=== PATIENT | female | born 1990 | race Caucasian/White ===

== ENCOUNTER 2023-10-04 07:34 | Inpatient (IN) ==
[2023-10-04] MEDS ORDERED: OXYTOCIN 30 UNITS/NSS 30 UNITS/500 ML BAG IV PRN ×2 (07:37→17:08)
[2023-10-04] MEDS ORDERED: LIDOCAINE 1% LOCAL 20 ML VIAL INFIL PRN (07:37)
--- NOTE | 2023-10-04 07:46 | History & Physical Report ---
Date of Service October 04, 2023 Assessment & Plan (1) Encounter for induction of labor: Plan 32 y/o female currently at 39WGA with an SHAWNA 10/11/23 as determined by US, who is here for IOL. Pitocin AROM as indicated Epidural prn Monitor heart tracing, category 1 Admission and Anticipated Discharge Date Admission Date: October 04, 2023 History of Present Illness Primary Care Provider: Virginia Curran MD 32 y/o female currently at 39WGA with an SHAWNA 10/11/23 as determined by US, who is here for IOL. complicated by: GDM Obesity (BMI between 35-39 @ beginning of ) Hypothyroid - follows endo Conceived on OCPs Suspected LGA - EFW 97% Had regular appointments with OB (+)Contractions (+) movement Unsure about fluid loss, small amount of leakage but thinks this is most likely urine (-)Vaginal bleeding External FHT and external uterine monitors used: Category 1 tracing OB Labs: Blood Type O Positive 04/06/23 Antibody Screen NEGATIVE 04/06/23 Hemoglobin 11.7 g/dl (12.0-16.0) L 08/05/23 Hematocrit 35.6 % (37.0-47.0) L 08/05/23 Mean Corpuscular Volume 88.7 fL (80.0-100.0) 04/06/23 Platelet Count 170 K/uL (130-400) 04/06/23 Rubella IgG Antibody Immune (Immune) 03/01/23 Rapid Plasma Reagin Nonreactive (Nonreactive) 03/01/23 Hepatitis B Surface Antigen. NON-REACTIVE (NON-REACTIVE) 03/01/23 Hepatitis C Antibody (EIA) NON-REACTIVE (NON-REACTIVE) 03/01/23 HIV (1&2) Ag and Ab Confirmation NON-REACTIVE (NON-REACTIVE) 03/01/23 OB Optional Labs: Chlamydia trachomatis RNA Not Detected (NotDetected) 03/01/23 Neisseria gonorrhoeae RNA Not Detected (NotDetected) 03/01/23 Thyroid Stimulating Hormone (TSH) 1.868 uIu/ml (0.300-4.500) 08/05/23 Labs Reviewed: low riks cfdna - sln neg cf/sma - sln Allergies Allergy/AdvReac Type Severity Reaction Status Date / Time No Known Allergies Allergy Verified 10/03/23 10:10 Home Medications Medication Instructions Recorded Confirmed Type blood-glucose meter (OneTouch #1 ea 03/18/23 10/03/23 Rx Verio Reflect Meter) lancets 33 gauge #150 ea 07/15/23 10/03/23 Rx acetone (urine) test (Ketone Urine #50 ea 08/09/23 10/03/23 Rx Test strips) blood sugar diagnostic (OneTouch #200 ea 09/09/23 10/03/23 Rx Verio test strips) levothyroxine 75 mcg tablet 75 mcg PO DAILYBB #34 tabs 09/09/23 10/04/23 Rx Patient History Medical History ADHD FH: Crohn's disease FH: rheumatoid arthritis Gestational diabetes mellitus (GDM) Surgical History History of oral surgery Tooth extraction S/P dilation and curettage S/P tonsillectomy and adenoidectomy Family History Mother Precancerous changes of the cervix Denies family history of Ovarian cancer Breast cancer Colorectal cancer Uterine cancer Social History (Updated 10/04/23 @ 07:52 by Cristela Cox RN) Smoking Status: Never smoker Second Hand Exposure: No; Do You Dip or Chew Tobacco: No; Hx Alcohol Use: No Hx Substance Use: No Preferred Language: Serbian Communication Ability: Effective 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 Beliefs That Will Affect Care: None marital status: marital status details: Terrence Jain [phone] Current Living Situation: Spouse Current Living Situation Comment: lives with , kid, 1 dog, 1 cat (spouse litter changing) current occupational status: employed 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 Date GA wks Lbr Lgth wt Sex Type del Anes Place Del Prov ? 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 No acute distress Cardiac: Regular rate and rhythm, no murmurs appreciated Respiratory: Lungs clear to auscultation bilaterally, No increased work of breathing Abdominal: Soft, non-tender, non-distended. Bowel sounds present. Gravid uterus. Extremities: No lower extremity edema, calves non-tender bilaterally FHT: Category 1, baseline rate 145, moderate variability Genitourinary: OB Exam Abdomen: + vertex, + estimated weight (8-9 pounds) and + irregular contractions Manual OB Exam: + cervical dilation (2-3 cm), + cervical effacement 60% and + station -2 OB Exam Monitor Tracing: + external FHT monitor used, + external uterine monitor used, + category I and + normal FHT variability Supervising Physician Co-Signing Physician Notes Resident Physician Supervision Note: I interviewed and examined the patient. Discussed with Dr. Santos and agree with findings and plan as documented in the note. Any exceptions or clarifications are listed here: [None] Documented By: Tesha Gardner MD, FACOG Resident Activity Tracking Resident Involvement: Resident Care Provided Care Provided: OB Delivery
[2023-10-04 08:09] LABS: Hematocrit (blood only) 35.3 % (37.0-47.0); Hemoglobin 11.8 g/dl (12.0-16.0); Mean Corpuscular Hemoglobin 27.1 pg (25.0-34.0); Mean Corpuscular Hgb Conc 33.4 g/dL (32.0-36.0); Mean Platelet Volume 12.7 fL (9.4-12.4); Platelet Count 167 K/uL (130-400); RDW Coefficient of Variation 13.2 % (11.5-14.5); RDW Standard Deviation 38.7 fL (36.4-46.3); Red Blood Count 4.36 M/uL (4.20-5.40); White Blood Count 11.13 K/ul (4.8-10.8)
[2023-10-04] MEDS: LACTATED RINGER'S 1,000 ML IV PRN (08:45)
[2023-10-04] MEDS: OXYTOCIN 30 UNITS/NSS 30 UNITS/500 ML BAG IV PRN (09:16)
[2023-10-04] MEDS: BUPIVACAINE 0.25% PF 30 ML VIAL ONE (15:44)
[2023-10-04] MEDS: LIDOCAINE 2%/EPINEPHRINE 1:200,000 20 ML PF ONE (15:44)
[2023-10-04] MEDS: fentANYL 2 MCG/ML BUPIVacaine 0.125%-NSS 100ML BAG ONE (15:45)
[2023-10-04] MEDS: SODIUM CHLORIDE 0.9% PF INJ 10 ML VIAL ONE (15:53)
[2023-10-04] MEDS: fentaNYL citrate PF 100 MCG/2 ML VIAL ONE (15:53)
[2023-10-04] MEDS: ePHEDrine sulfate 50 MG/ML AMP ONE (15:53)
--- NOTE | 2023-10-04 15:53 | Anesthesiology Consultation ---
Date of Service October 04, 2023 Assessment & Plan Chart Review Chart Review: Acceptable Risk for Labor Epidural Consults Requested none History Height/Weight Height: 5 ft 6 in Weight: 115.666 kg Allergies Allergy/AdvReac Type Severity Reaction Status Date / Time No Known Allergies Allergy Verified 10/03/23 10:10 Medications Home Medications Medication Instructions Recorded Confirmed Last Taken blood-glucose meter (OneTouch #1 ea 03/18/23 10/03/23 Unknown Verio Reflect Meter) lancets 33 gauge #150 ea 07/15/23 10/03/23 Unknown acetone (urine) test (Ketone Urine #50 ea 08/09/23 10/03/23 Unknown Test strips) blood sugar diagnostic (OneTouch #200 ea 09/09/23 10/03/23 Unknown Verio test strips) levothyroxine 75 mcg tablet 75 mcg PO DAILYBB #34 tabs 09/09/23 10/04/23 10/04/23 05:30 Active Medications Generic Name Dose Route Start Last Admin Trade Name Freq PRN Reason Stop Dose Admin Oxytocin 30 units in 500 mls @ 12 mls/hr 10/04/23 07:37 10/04/23 13:45 Pitocin 30 Units/Nss IV 10/06/23 07:36 0.72 units/hr .Q24H PRN 12 mls/hr Labor Induction/Augmentation Titration Protocol 0.72 UNITS/HR Lactated Ringer's 1,000 mls @ 125 mls/hr 10/04/23 07:37 10/04/23 15:24 Lr IV 10/06/23 07:36 999 mls/hr .Q8H PRN Administration L&D Protocol Protocol Past Medical History Medical History ADHD FH: Crohn's disease FH: rheumatoid arthritis Gestational diabetes mellitus (GDM) Past Family History Family History Mother Precancerous changes of the cervix Denies family history of Ovarian cancer Breast cancer Colorectal cancer Uterine cancer Past Surgical History Surgical History History of oral surgery Tooth extraction S/P dilation and curettage S/P tonsillectomy and adenoidectomy Social History Smoking Status: Never smoker Do You Dip or Chew Tobacco: No Hx Alcohol Use: No Hx Substance Use: No Physical Exam Vital Signs Last Vital Signs Temp 36.5 C 10/04/23 14:45 Pulse 83 10/04/23 15:51 Resp 20 10/04/23 14:45 BP 131/74 10/04/23 15:50 Pulse Ox 97 10/04/23 15:51 Testing Laboratory Results 10/04/23 07:47 Blood Type O Positive 10/04/23 07:47 Antibody Screen NEGATIVE 10/04/23 07:47
[2023-10-04] MEDS ORDERED: SODIUM CHLORIDE 0.9% PF INJ 10 ML VIAL EPI PRN (15:55)
[2023-10-04] MEDS ORDERED: ePHEDrine sulfate 50 MG/ML AMP IV PRN (15:55)
[2023-10-04] MEDS ORDERED: ROPIVACAINE 0.5% PF 5 MG/ML 20 ML VIAL EPI PRN (15:55)
[2023-10-04] MEDS ORDERED: diphenhydrAMINE 50 MG/ML VIAL IV PRN (15:55)
[2023-10-04] MEDS ORDERED: BUPIVACAINE 0.25% PF 30 ML VIAL EPI PRN (15:55)
[2023-10-04] MEDS ORDERED: NALOXONE HCL 0.4 MG/1 ML VIAL/CARP IV PRN (15:55)
[2023-10-04] MEDS ORDERED: NALOXONE HCL 1 MG in SODIUM CHLORIDE 0.9% 1,000 ML IV PRN (15:55)
[2023-10-04] MEDS ORDERED: LIDOCAINE 2% MPF LOCAL 5 ML VIAL EPI PRN (15:55)
[2023-10-04] MEDS ORDERED: fentANYL 2 MCG/ML BUPIVacaine 0.125%-NSS 100ML BAG EPI PRN (15:55)
[2023-10-04] MEDS ORDERED: fentaNYL citrate PF 100 MCG/2 ML VIAL EPI PRN (15:55)
[2023-10-04] MEDS ORDERED: NALBUPHINE HCL 5 MG in SYRINGE 0 ML IV PRN (15:55)
--- NOTE | 2023-10-04 16:56 | Delivery Summary ---
Vaginal Delivery Summary Date of Service October 04, 2023 Vaginal Delivery Summary Induction of labor gestational diabetes not on insulin was induced in the morning by Dr. Stoner given Pitocin or water ruptured spontaneously requested epidural soon after epidural she was fully dilated and pushed over a total of 2 contractions in occiput anterior position head was delivered with clear fluid there was a loose nuchal cord that was passed over the baby's head gentle traction on the baby resulted in easy delivery no excessive force live vigorous female cord clamped after pulsations stopped cord blood obtained placenta removed with gentle traction IV Pitocin started uterine tone improved there was no tearing sponge and instrument counts correct [facility] Vaginal Delivery Charge Delivery Type Details:
[2023-10-04] MEDS ORDERED: ACETAMINOPHEN 325 MG TAB PO PRN (17:08)
[2023-10-04] MEDS ORDERED: bisacodyL 10 MG SUPP PR PRN (17:08)
[2023-10-04] MEDS ORDERED: HYDROCORTISONE ACETATE 25 MG SUPP PR PRN (17:08)
[2023-10-04] MEDS: DIPHTHER/TETAN/PERTUS Vaccine (Tdap, Adol/Adult) 0.5mL IM ONE (17:23)
[2023-10-04] MEDS: BUPIVACAINE 0.25% PF 30 ML VIAL EPI STA (17:23)
[2023-10-04] MEDS: fentaNYL citrate PF 100 MCG/2 ML VIAL EPI STA (17:23)
[2023-10-04] MEDS: LIDOCAINE 2%/EPINEPHRINE 1:200,000 20 ML PF EPI STA (17:24)
[2023-10-04] MEDS: SODIUM CHLORIDE 0.9% PF INJ 10 ML VIAL EPI STA (17:24)
--- NOTE | 2023-10-04 19:25 | Anesthesia Procedure Note ---
Date of Service October 04, 2023 Anesthesia Post Epidural Note Vital Signs Vital Signs: Temp Pulse Resp BP Pulse Ox 36.5 C 85 20 129/73 99 10/04/23 14:45 10/04/23 18:44 10/04/23 14:45 10/04/23 18:44 10/04/23 16:46 Pain Intensity Bilateral Abdomen: Pain Intensity: 0 Notes Mental Status: alert / awake / arousable Nausea / Vomiting: adequately controlled Pain: adequately controlled Airway Patency, RR, SpO2: stable & adequate BP & HR: stable & adequate Hydration State: stable & adequate Neuraxial Anesthesia: was administered and sensory block is resolving Anesthetic Complications: no major complications apparent and Pt Satisfied with anesthetic care Epidural: Removed without complications and With tip intact
[2023-10-04] MEDS: IBUPROFEN 600 MG TAB PO PRN (20:16)
[2023-10-04] MEDS: DOCUSATE SODIUM 100 MG CAP PO SCH (20:16)
[2023-10-04] MEDS: BENZOCAINE 20% SPRY 85 APPLN/85 GM CAN EXT PRN (20:16)
[2023-10-05] MEDS: LEVOTHYROXINE SODIUM 75 MCG TABLET PO SCH (06:22)
[2023-10-05 06:46] LABS: Hematocrit (blood only) 30.7 % (37.0-47.0); Mean Corpuscular Hemoglobin 27.1 pg (25.0-34.0); Mean Corpuscular Hgb Conc 32.6 g/dL (32.0-36.0); Mean Corpuscular Volume 83.2 fL (80.0-100.0); Mean Platelet Volume 12.7 fL (9.4-12.4); Platelet Count 155 K/uL (130-400); RDW Coefficient of Variation 13.3 % (11.5-14.5); Red Blood Count 3.69 M/uL (4.20-5.40); White Blood Count 12.48 K/ul (4.8-10.8)
--- NOTE | 2023-10-05 07:08 | Obstetrical Progress Note ---
Date of Service <Bruno Santos DO - Last Filed: 10/05/23 07:08> October 05, 2023 Assessment & Plan <Bruno Santos DO - Last Filed: 10/05/23 07:08> (1) Encounter for assessment: Plan 32 y/o PPD#1: Eating well, voiding well, ambulating well Vitals reviewed, WNL Pain well controlled with Motrin Routine post care - OOB, ambulation, diet progression as tolerated Will have 6 week follow up with Dr. Hinojosa <Dick Hinojosa MD, FACOG - Last Filed: 10/05/23 07:38> (1) Encounter for assessment: Subjective <Bruno Santos DO - Last Filed: 10/05/23 07:08> Ambulation: ambulating normally Voiding: no voiding problems Passing Gas:: Yes Diet Tolerance:: regular diet Lochia:: Small Feeding Type:: breast feeding Pain well controlled with Motrin Review of Systems -Denies fever or chills -Denies dyspnea, chest pain, or palpitations -Denies dysuria -Denies headache or changes in vision Physical Exam <Bruno Santos DO - Last Filed: 10/05/23 07:08> General: Alert and oriented. No acute distress Cardiac: Regular rate and rhythm, no murmurs appreciated Respiratory: Lungs clear to auscultation bilaterally, No increased work of breathing Abdominal: Soft, non-tender, non-distended. Bowel sounds present. Uterus: Uterine fundus firm, palpable below umbilicus Extremities: No lower extremity edema, calves non-tender bilaterally Results & Data <Bruno Santos - Last Filed: 10/05/23 07:08> Vital Signs (Past 12 Hours) Vital Signs Temp Pulse Resp BP BP Pulse Ox O2 Del Method 10/05/23 03:40 36.4 C L 68 18 129/74 97 Room Air 10/04/23 23:07 37.2 C 75 20 146/87 H 98 Room Air 10/04/23 21:02 76 130/78 10/04/23 20:33 75 148/87 H 10/04/23 19:56 71 131/85 10/04/23 19:20 36.7 C 78 16 140/91 98 Room Air Supervising Physician <Dick Hinojosa MD, FACOG - Last Filed: 10/05/23 07:38> Co-Signing Physician Notes Resident Physician Supervision Note: I was present with Dr. Santos during the history and exam. I discussed the case with the resident and agree with the findings and plan as documented in the note. Any exceptions or clarifications are listed here: [None] Documented By: Dick Hinojosa MD, FACOG Resident Activity Tracking <Bruno Santos DO - Last Filed: 10/05/23 07:08> Resident Involvement: Resident Care Provided Care Provided: OB Delivery
[2023-10-05] MEDS: PRENATAL VITAMIN 1 TAB PO SCH (08:19)
[2023-10-05] MEDS: bisacodyL 5 MG TABEC PO SCH (23:24)
[2023-10-06 08:03] LABS: Hematocrit (blood only) 30.9 % (37.0-47.0); Hemoglobin 10.2 g/dl (12.0-16.0)
--- NOTE | 2023-10-06 09:11 | Obstetrical Progress Note ---
Date of Service October 06, 2023 Assessment & Plan (1) Encounter for assessment: satisfactory exam continue current PPX plan would like to go home today if possible follow up in 6 weeks Subjective Ambulation: ambulating normally Voiding: no voiding problems Passing Gas:: Yes Diet Tolerance:: regular diet Lochia:: Small Feeding Type:: breast feeding doing well this AM- endorses some cramping but relieved with Motrin Review of Systems All systems reviewed & are unremarkable except as noted in HPI & below Physical Exam Constitutional WD/WN, vitals as above Psychiatric A+Ox3, euthymic affect Genitourinary OB Exam Abdomen: + fundal height Fundus: + firm and + relation to umbilicus (3 below) Results & Data Vital Signs (Past 12 Hours) Vital Signs Temp Pulse Resp BP BP Pulse Ox O2 Del Method 10/06/23 07:24 Room Air 10/06/23 07:24 98.6 F 77 18 133/81 98 Room Air 10/05/23 23:16 98.6 F 72 18 128/77 96 Room Air
== END 2023-10-06 11:25 | disposition home or self-care (01) | DRG 807 ==
LOC: 4S1 07:34 → 4E2 20:06